=== PATIENT | female | born 1940 | race Caucasian/White ===

== ENCOUNTER 2019-10-08 20:13 | Inpatient (IN) | payer MEDICARE, MEDICAID ==
[~2019-10-08] VITALS: Ht 160 cm; Wt 69.1 kg
[~2019-10-08 20:13] MED LIST: BUSPAR10 MG PO; KEFLEX500 MG PO; METHADONE10 MG PO; NEURONTIN600 MG PO; ZOLOFT100 MG PO; ZOLOFT50 MG PO
[2019-10-08 20:27] VITALS: BP 124/77
[2019-10-08 20:37] LABS: BASO % 0.8 % (0.0-1.0); EOS # 0.2 10*3/uL (0.0-0.4); EOS % 3.5 % (1.0-4.0); HEMATOCRIT 39.1 % (37.0-47.0); HEMOGLOBIN 12.4 g/dl (12.0-16.0); LYMPH # 2.3 10*3/uL (1.3-4.4); LYMPH % 44.1 % (27.0-41.0); MEAN CELL VOLUME 85.7 fl (81.0-99.0); MEAN CORPUSCULAR HGB 27.2 pg (27.0-31.0); MEAN CORPUSCULAR HGB CONC 31.7 g/dl (33.0-37.0); MEAN PLATELET VOLUME 10.1 fl (9.6-12.3); MONO # 0.6 10*3/uL (0.1-1.0); MONO % 11.7 % (3.0-9.0); NEUT % 39.7 % (47.0-73.0); PLATELET COUNT AUTOMATED 176 10*3/uL (130-400); RED BLOOD COUNT 4.56 10*6/uL (4.10-5.10); WHITE BLOOD COUNT 5.1 10*3/uL (4.8-10.8)
[2019-10-08 20:49] LABS: ACT PARTIAL THROMBO TIME 24.7 SECONDS (20.0-32.1); INTERNATIONAL NORM RATIO 0.9 (2.0-3.5)
[2019-10-08 20:53] LABS: ALBUMIN 3.8 gm/dl (3.1-4.5); ALKALINE PHOSPHATASE 73 U/L (45-117); BUN 13 mg/dl (7-24); CHLORIDE 110 mmol/L (98-107); SGOT/AST 17 IU/L (3-35); SGPT/ALT 19 U/L (12-78); SODIUM 144 mmol/L (136-145); TOTAL PROTEIN 6.9 gm/dL (6.4-8.2)
[2019-10-08 20:54] LABS: TROPONIN I < 0.015 ng/ml (<0.045)
[2019-10-08 23:40] VITALS: BP 164/84
[2019-10-08] MEDS ORDERED: FOLGARD TABLET1 EACH PO (23:53)
[2019-10-09] VITALS: BP 164/84
[2019-10-09] MEDS ORDERED: TRAMADOL HCL50 MG PO (00:01)
[2019-10-09 01:08] VITALS: BP 138/76
[2019-10-09] MEDS ORDERED: MECLIZINE HCL25 M2 PO ×2 (04:10→04:11)
[2019-10-09 05:47] LABS: CREATININE 1.09 mg/dL (0.55-1.02); FREE T4 0.68 ng/dl (0.76-1.46); PHOSPHOROUS 3.7 mg/dL (2.5-4.9); POTASSIUM 3.6 mmol/L (3.5-5.1)
[2019-10-09 05:53] LABS: THYROID STIM HORMONE (HS) 2.27 uIU/ml (0.358-4.75)
[2019-10-09 06:13] LABS: BASO % 0.8 % (0.0-1.0); EOS # 0.2 10*3/uL (0.0-0.4); EOS % 3.2 % (1.0-4.0); HEMATOCRIT 36.9 % (37.0-47.0); HEMOGLOBIN 11.4 g/dl (12.0-16.0); LYMPH # 2.4 10*3/uL (1.3-4.4); LYMPH % 50.5 % (27.0-41.0); MEAN CELL VOLUME 87.6 fl (81.0-99.0); MEAN CORPUSCULAR HGB 27.1 pg (27.0-31.0); MEAN CORPUSCULAR HGB CONC 30.9 g/dl (33.0-37.0); MEAN PLATELET VOLUME 10.9 fl (9.6-12.3); MONO # 0.6 10*3/uL (0.1-1.0); MONO % 12.1 % (3.0-9.0); NEUT # 1.6 10*3/uL (2.3-7.9); NEUT % 33.2 % (47.0-73.0); PLATELET COUNT AUTOMATED 152 10*3/uL (130-400); RED BLOOD COUNT 4.21 10*6/uL (4.10-5.10); WHITE BLOOD COUNT 4.7 10*3/uL (4.8-10.8)
[2019-10-09 07:47] LABS: VITAMIN D, 25-HYDROXY 39.5 ng/mL (30-100)
[2019-10-09 08:00] VITALS: BP 154/76
[2019-10-09 12:00] VITALS: BP 134/61
[2019-10-09 16:00] VITALS: BP 135/68
[2019-10-09 20:00] VITALS: BP 126/74
[2019-10-10] VITALS: BP 153/66
[2019-10-10 07:04] LABS: BASO % 0.4 % (0.0-1.0); EOS # 0.2 10*3/uL (0.0-0.4); EOS % 3.7 % (1.0-4.0); HEMATOCRIT 39.3 % (37.0-47.0); HEMOGLOBIN 12.5 g/dl (12.0-16.0); LYMPH # 1.7 10*3/uL (1.3-4.4); MEAN CELL VOLUME 84.7 fl (81.0-99.0); MEAN CORPUSCULAR HGB 26.9 pg (27.0-31.0); MEAN CORPUSCULAR HGB CONC 31.8 g/dl (33.0-37.0); MEAN PLATELET VOLUME 10.5 fl (9.6-12.3); MONO # 0.5 10*3/uL (0.1-1.0); MONO % 10.8 % (3.0-9.0); NEUT # 2.1 10*3/uL (2.3-7.9); NEUT % 46.9 % (47.0-73.0); PLATELET COUNT AUTOMATED 168 10*3/uL (130-400); RED BLOOD COUNT 4.64 10*6/uL (4.10-5.10); RED CELL DISTRI WIDTH 13.9 % (0-14.5); WHITE BLOOD COUNT 4.6 10*3/uL (4.8-10.8)
[2019-10-10 07:16] LABS: BUN 11 mg/dl (7-24); CHLORIDE 109 mmol/L (98-107); CREATININE 0.93 mg/dL (0.55-1.02); POTASSIUM 3.8 mmol/L (3.5-5.1); SODIUM 142 mmol/L (136-145)
[2019-10-10 08:00] VITALS: BP 152/79
[2019-10-10 12:00] VITALS: BP 145/76
== END 2019-10-10 16:58 | disposition home or self-care (01) | DRG 564 ==
LOC: ED 20:13 → 4E 22:52 → EDHOLD 22:52 → 4E 23:38
PROVIDERS: Emergency Medicine; Internal Medicine; ADMIT Emergency Medicine
DX: M89.8X1 Other specified disorders of bone, shoulder (principal); N17.0 Acute kidney failure with tubular necrosis; E87.0 Hyperosmolality and hypernatremia; E87.8 Other disorders of electrolyte and fluid balance, not elsewhere classified; E83.41 Hypermagnesemia; R73.9 Hyperglycemia, unspecified; D64.9 Anemia, unspecified; L40.50 Arthropathic psoriasis, unspecified; E78.5 Hyperlipidemia, unspecified; K59.09 Other constipation; M79.7 Fibromyalgia; R07.89 Other chest pain; F41.9 Anxiety disorder, unspecified; Z79.899 Other long term (current) drug therapy; Z85.828 Personal history of other malignant neoplasm of skin

== ENCOUNTER 2019-12-26 11:05 | Inpatient (IN) | payer MEDICARE, MEDICAID ==
[2019-12-26] VITALS (7 sets, daily range): BP systolic 123–146; BP diastolic 58–95
[~2019-12-26] VITALS: Ht 162.6 cm; Wt 67.7 kg
[~2019-12-26 11:05] MED LIST changes: +FOLGARD TABLET1 EACH PO; +MECLIZINE HCL25 M2 PO; +TRAMADOL HCL50 MG PO
[2019-12-26 11:32] LABS: BASO # 0.1 10*3/uL (0.0-0.1); BASO % 0.9 % (0.0-1.0); EOS # 0.2 10*3/uL (0.0-0.4); EOS % 3.1 % (1.0-4.0); HEMATOCRIT 41.6 % (37.0-47.0); LYMPH # 1.7 10*3/uL (1.3-4.4); LYMPH % 30.4 % (27.0-41.0); MEAN CORPUSCULAR HGB 27.7 pg (27.0-31.0); MEAN CORPUSCULAR HGB CONC 32.2 g/dl (33.0-37.0); MEAN PLATELET VOLUME 10.1 fl (9.6-12.3); MONO # 0.8 10*3/uL (0.1-1.0); MONO % 13.1 % (3.0-9.0); NEUT % 51.6 % (47.0-73.0); PLATELET COUNT AUTOMATED 217 10*3/uL (130-400); RED BLOOD COUNT 4.84 10*6/uL (4.10-5.10); RED CELL DISTRI WIDTH 13.9 % (0-14.5); WHITE BLOOD COUNT 5.7 10*3/uL (4.8-10.8)
[2019-12-26 11:43] LABS: ACT PARTIAL THROMBO TIME 23.1 SECONDS (20.0-32.1); INTERNATIONAL NORM RATIO 0.9 (2.0-3.5)
[2019-12-26 11:55] LABS: ALBUMIN 3.6 gm/dl (3.1-4.5); ALKALINE PHOSPHATASE 92 U/L (45-117); BUN 26 mg/dl (7-24); CHLORIDE 106 mmol/L (98-107); CREATININE 0.98 mg/dL (0.55-1.02); LIPASE 225 U/L (73-393); POTASSIUM 4.5 mmol/L (3.5-5.1); SGOT/AST 15 IU/L (3-35); SGPT/ALT 19 U/L (12-78); SODIUM 139 mmol/L (136-145); TOTAL PROTEIN 6.7 gm/dL (6.4-8.2)
[2019-12-26 11:57] LABS: TROPONIN I < 0.015 ng/ml (<0.045)
[2019-12-26 12:51] LABS: BILIRUBIN NEGATIVE (NEGATIVE); BLOOD NEGATIVE (NEGATIVE); CLARITY SL CLOUDY (CLEAR); COLOR YELLOW (YELLOW); GLUCOSE NEGATIVE (NEGATIVE); KETONE NEGATIVE (NEGATIVE); LEUKO ESTERASE 1+ (NEGATIVE); NITRITE NEGATIVE (NEGATIVE); PH 6.5 (5.0-9.0); UROBILINOGEN 0.2 E.U./dl (0.2-1.0)
[2019-12-26 13:01] LABS: BACTERIA TRACE; EPITHELIAL CELLS 0-2
[2019-12-26] MEDS ORDERED: PROTONIX TR40 M1 PO (15:50)
[2019-12-26] MEDS ORDERED: NEURONTIN300 MG PO (15:50)
[2019-12-26] MEDS ORDERED: KENALOG 0.1% LO60 ML T (15:51)
[2019-12-26] MEDS ORDERED: AMITRIPTYLINE25 MG PO (15:51)
[2019-12-26] MEDS ORDERED: VITAMIN D350 MC2 PO (15:52)
--- NOTE | 2019-12-26 16:50 | NUR ---
Time: 1649 A 79 year old FEMALE admitted to 4E under services of BRUNO GENAO DO. Pt. arrived via WHEELCHAIR from ER. Chief complaint: WEAKNESS, ABDOMINAL PAIN, BACK PAIN, SORE THROAT AND COUGH FOR ONE MONTH. KIMMY DIALLO
--- NOTE | 2019-12-26 17:18 | NUR ---
MEDICATED WITH PRN PO NORCO AND DULCOLAX FOR C/O BACK AND LEGS ARTHRITIS PAIN AND ALSO CONSTIPATION.
[2019-12-26] MEDS ORDERED: OCUVITE WITH L1 EACH PO (17:35)
--- NOTE | 2019-12-26 19:55 | NUR ---
PATIENT IS AAOX3 RESTING IN BED WITH EASY AND REGULAR RESPERS ON ROOM AIR. ASSESSMENT IS COMPLETE WITH NO C/O OR S/S OF DISTRESS NOTED AT THIS TIME. BED IS LOW, LOCKED, AND CALL LIGHT IS WITHIN REACH. WILL CONTINUE TO MONITOR, SEE SHIFT ASSESSMENT.
--- NOTE | 2019-12-26 21:18 | NUR ---
NORCO ADMINISTERED FOR PT C/O NECK PAIN RATED A 6/10. WILL CONTINUE TO MONITOR.
--- NOTE | 2019-12-26 22:51 | NUR ---
PATIENT REQUESTING SOMETHING TO HELP SLEEP. CALL PLACED TO DR. JOHN EPSTEIN ORDERED.
[2019-12-27] VITALS: BP 146/77
--- NOTE | 2019-12-27 03:05 | NUR ---
CHART CHECK COMPLETE.
--- NOTE | 2019-12-27 03:28 | NUR ---
PRN NORCO GIVEN AT 0319 FOR C/O LEG PAIN RATING A 6/10. CALL LIGHT IS WITHIN REACH. WILL MONITOR EFFECT.
[2019-12-27 06:17] LABS: BASO % 0.4 % (0.0-1.0); EOS # 0.2 10*3/uL (0.0-0.4); EOS % 3.6 % (1.0-4.0); HEMATOCRIT 38.1 % (37.0-47.0); LYMPH % 39.9 % (27.0-41.0); MEAN CELL VOLUME 85.6 fl (81.0-99.0); MEAN CORPUSCULAR HGB CONC 31.5 g/dl (33.0-37.0); MEAN PLATELET VOLUME 10.4 fl (9.6-12.3); MONO # 0.6 10*3/uL (0.1-1.0); MONO % 12.3 % (3.0-9.0); NEUT # 2.2 10*3/uL (2.3-7.9); NEUT % 43.4 % (47.0-73.0); PLATELET COUNT AUTOMATED 187 10*3/uL (130-400); RED BLOOD COUNT 4.45 10*6/uL (4.10-5.10); RED CELL DISTRI WIDTH 13.7 % (0-14.5)
--- NOTE | 2019-12-27 06:29 | NUR ---
PAIN MEDICATION REASSED AT 0430, NO S/S OF PAIN. PATIENT IS SLEEPING WITH EASY AND REGULAR RESPERS ON ROOM AIR. CALL LIGHT IS WITHIN REACH.
[2019-12-27 06:44] LABS: ALBUMIN 3.3 gm/dl (3.1-4.5); ALKALINE PHOSPHATASE 79 U/L (45-117); BUN 26 mg/dl (7-24); CHLORIDE 107 mmol/L (98-107); CHOLESTEROL 222 mg/dL (<200); CREATININE 0.87 mg/dL (0.55-1.02); FREE T4 0.82 ng/dl (0.76-1.46); HDL CHOLESTEROL 53 mg/dl (40-60); LDL CHOLESTEROL 147 mg/dL (9-159); POTASSIUM 4.2 mmol/L (3.5-5.1); SGOT/AST 10 IU/L (3-35); SGPT/ALT 16 U/L (12-78); SODIUM 142 mmol/L (136-145); TOTAL PROTEIN 6.4 gm/dL (6.4-8.2); TRIGLYCERIDES 111 mg/dl (<150); VLDL CHOLESTEROL 22 mg/dL (6-40)
--- NOTE | 2019-12-27 07:48 | NUR ---
PHYSICAL THERAPY Screen and PT eval received will follow thank you. Courtney Mann PT
[2019-12-27 07:59] LABS: VITAMIN D, 25-HYDROXY 40.5 ng/mL (30-100)
[2019-12-27 08:00] VITALS: BP 152/89
--- NOTE | 2019-12-27 08:44 | NUR ---
PT RESTING IN BED. NO DISTRESS NOTED. WILL MONITOR
--- NOTE | 2019-12-27 11:32 | NUR ---
Franchise Specialist in to talk to patient. Patient states lives at HOME with GRANDSONS. There are BASEMENT steps in the home. Physician: [facility]: [facility] Home health services: NONE Patient's level of ADLs: INDEPENDENT Patient has working utilities: YES DME: NONE Follow-up physician's appointment after d/c: WILL BE MADE BY HOSPITALIST NURSE DIRECTOR ON DISCHARGE Does patient want to access PORTAL?: NO Discharge plan PT LIVES AT HOME WITH HER GRANDSONS AND IS INDEPENDENT IN HER CARE. DENIES SHE HAS ANY NEEDS AT HOME. STATES GRANDSONS HELP HER WITH LAUNDRY AND CLEANING. PLANS TO RETURN HOME WHEN MEDICALLY STABLE. STATES HER SON WILL TAKE HER HOME. WILL CONTINUE TO FOLLOW.. KOURTNEY BELTRAN
--- NOTE | 2019-12-27 12:30 | NUR ---
Occupational therapy orders received and OT screening completed this date. Patient was A&Ox3 and reported and demonstrated she has independently completing ADLs, transfers, and functional mobility in the room. Patient independently transferred on and off the toilet without GB use, no LOBs, and transferred in and out of bed. Patient notified of d/c from OT services and was agreeable. Thank you for the referral. Sari Yang, OTR/L
--- NOTE | 2019-12-27 12:34 | NUR ---
PHYSICAL THERAPY PT evaluation attempted and patient screen completed. Patient independent in room, able to walk freely and transfer without difficulty. No PT needs at this time. Thank you. Amelia Jefferson,PT,DPT.
[2019-12-27] MEDS ORDERED: CEPHALEXIN500 M1 PO (13:40)
--- NOTE | 2019-12-27 14:00 | NUR ---
Discharge instructions reviewed with patient/family. Patient receptive and verbalizes understanding. Follow-up care arranged. Written instructions given to patient/family. RANULFO MCQUEEN
== END 2019-12-27 13:54 | disposition home or self-care (01) | DRG 690 ==
LOC: ED 11:05 → EDHOLD 14:48 → 4E 14:48
PROVIDERS: Emergency Medicine; Registered Nurse; ADMIT Internal Medicine
DX: N30.00 Acute cystitis without hematuria (principal); E86.0 Dehydration; R53.1 Weakness; E83.41 Hypermagnesemia; E78.2 Mixed hyperlipidemia; K44.9 Diaphragmatic hernia without obstruction or gangrene; M79.7 Fibromyalgia; G50.0 Trigeminal neuralgia; F41.9 Anxiety disorder, unspecified; F32.9 Major depressive disorder, single episode, unspecified; Z90.49 Acquired absence of other specified parts of digestive tract; Z98.51 Tubal ligation status; Z87.891 Personal history of nicotine dependence; Z83.49 Family history of other endocrine, nutritional and metabolic diseases; Z79.899 Other long term (current) drug therapy

== ENCOUNTER 2020-01-24 07:06 | Observation (INO) | payer MEDICARE, MEDICAID ==
[2020-01-24] VITALS (7 sets, daily range): BP systolic 115–194; BP diastolic 65–104
[~2020-01-24] VITALS: Ht 160 cm; Wt 64.2 kg
[~2020-01-24 07:06] MED LIST changes: +AMITRIPTYLINE25 MG PO; +CEPHALEXIN500 M1 PO; +KENALOG 0.1% LO60 ML T; +NEURONTIN300 MG PO; +OCUVITE WITH L1 EACH PO; +PROTONIX TR40 M1 PO; +VITAMIN D350 MC2 PO
[2020-01-24 07:27] LABS: BASO % 0.4 % (0.0-1.0); EOS # 0.1 10*3/uL (0.0-0.4); EOS % 1.1 % (1.0-4.0); HEMATOCRIT 40.1 % (37.0-47.0); LYMPH # 1.3 10*3/uL (1.3-4.4); LYMPH % 22.9 % (27.0-41.0); MEAN CELL VOLUME 84.2 fl (81.0-99.0); MEAN CORPUSCULAR HGB 27.3 pg (27.0-31.0); MEAN CORPUSCULAR HGB CONC 32.4 g/dl (33.0-37.0); MONO # 0.5 10*3/uL (0.1-1.0); MONO % 8.3 % (3.0-9.0); NEUT # 3.8 10*3/uL (2.3-7.9); NEUT % 66.9 % (47.0-73.0); PLATELET COUNT AUTOMATED 183 10*3/uL (130-400); RED BLOOD COUNT 4.76 10*6/uL (4.10-5.10); RED CELL DISTRI WIDTH 13.6 % (0-14.5); WHITE BLOOD COUNT 5.6 10*3/uL (4.8-10.8)
[2020-01-24] MEDS ORDERED: TRAMADOL HCL50 MG PO (07:38)
[2020-01-24 07:43] LABS: ACT PARTIAL THROMBO TIME 26.1 SECONDS (20.0-32.1); INTERNATIONAL NORM RATIO 0.9 (2.0-3.5)
[2020-01-24 07:44] LABS: ALBUMIN 4.1 gm/dl (3.1-4.5); ALKALINE PHOSPHATASE 82 U/L (45-117); BUN 14 mg/dl (7-24); CHLORIDE 109 mmol/L (98-107); CREATININE 0.92 mg/dL (0.55-1.02); POTASSIUM 3.5 mmol/L (3.5-5.1); SGOT/AST 15 IU/L (3-35); SGPT/ALT 19 U/L (12-78); SODIUM 141 mmol/L (136-145); TOTAL PROTEIN 7.8 gm/dL (6.4-8.2)
[2020-01-24 07:46] LABS: TROPONIN I < 0.015 ng/ml (<0.045)
[2020-01-24 07:54] LABS: LIPASE 139 U/L (73-393)
[2020-01-24 08:40] LABS: BILIRUBIN NEGATIVE (NEGATIVE); BLOOD NEGATIVE (NEGATIVE); CLARITY CLEAR (CLEAR); COLOR YELLOW (YELLOW); EPITHELIAL CELLS 0-2; GLUCOSE NEGATIVE (NEGATIVE); KETONE NEGATIVE (NEGATIVE); LEUKO ESTERASE TRACE (NEGATIVE); NITRITE NEGATIVE (NEGATIVE); PH 8.5 (5.0-9.0); SPECIFIC GRAVITY 1.015 (1.005-1.030); UROBILINOGEN 0.2 E.U./dl (0.2-1.0); WBC 0-2 wbc/hpf (0-5)
[2020-01-24] MEDS ORDERED: LISINOPRIL10 M1 PO (12:55)
[2020-01-24 17:24] LABS: URINE AMPHETAMINES < 1000 (1000ng/ml); URINE BARBITURATES < 200 (200ng/ml); URINE BENZODIAZEPINES < 200 (200ng/ml); URINE CANNABINOIDS (THC) < 50 (50ng/ml); URINE COCAINE < 300 (300ng/ml); URINE METHADONE < 300 (300ng/ml); URINE OPIATES < 300 (300ng/ml)
[2020-01-24 17:26] LABS: URINE PHENCYCLIDINE < 25 (25ng/ml)
[2020-01-25] VITALS: BP 120/70
[2020-01-25 06:32] LABS: BASO % 0.8 % (0.0-1.0); EOS # 0.1 10*3/uL (0.0-0.4); EOS % 1.5 % (1.0-4.0); HEMATOCRIT 39.4 % (37.0-47.0); LYMPH % 37.8 % (27.0-41.0); MEAN CELL VOLUME 84.9 fl (81.0-99.0); MEAN CORPUSCULAR HGB 26.7 pg (27.0-31.0); MEAN CORPUSCULAR HGB CONC 31.5 g/dl (33.0-37.0); MEAN PLATELET VOLUME 10.3 fl (9.6-12.3); MONO # 0.7 10*3/uL (0.1-1.0); MONO % 13.1 % (3.0-9.0); NEUT # 2.4 10*3/uL (2.3-7.9); NEUT % 46.6 % (47.0-73.0); PLATELET COUNT AUTOMATED 195 10*3/uL (130-400); RED BLOOD COUNT 4.64 10*6/uL (4.10-5.10); RED CELL DISTRI WIDTH 13.6 % (0-14.5); WHITE BLOOD COUNT 5.2 10*3/uL (4.8-10.8)
[2020-01-25 06:54] LABS: BUN 19 mg/dl (7-24); CHLORIDE 109 mmol/L (98-107); CREATININE 0.94 mg/dL (0.55-1.02); POTASSIUM 3.3 mmol/L (3.5-5.1); SODIUM 141 mmol/L (136-145)
[2020-01-25 08:00] VITALS: BP 148/80
[2020-01-25] MEDS ORDERED: TRAMADOL HCL50 MG PO (09:26)
== END 2020-01-25 10:20 | disposition home or self-care (01) ==
LOC: ED 07:06 → 5E 11:16 → EDHOLD 11:16 → 5E 11:16
PROVIDERS: Emergency Medicine; Family Medicine; Internal Medicine; ADMIT Internal Medicine
DX: R00.0 Tachycardia, unspecified (principal); I16.0 Hypertensive urgency; I10 Essential (primary) hypertension; E86.0 Dehydration; E83.41 Hypermagnesemia; F11.23 Opioid dependence with withdrawal; E87.8 Other disorders of electrolyte and fluid balance, not elsewhere classified; F41.9 Anxiety disorder, unspecified; M79.7 Fibromyalgia; E55.9 Vitamin D deficiency, unspecified; K21.9 Gastro-esophageal reflux disease without esophagitis; F32.9 Major depressive disorder, single episode, unspecified

== ENCOUNTER → 2022-01-08 | Outpatient (CLI) | payer OTHER, MEDICAID ==
[~2022-01-08] MED LIST changes: +CIPRO500 MG PO; +LISINOPRIL10 M1 PO
== END | disposition home or self-care (01) ==
LOC: RAD 10:07
PROVIDERS: ATTEND Preventive Medicine Occupational Medicine
DX: M51.36 Other intervertebral disc degeneration, lumbar region (principal)

== ENCOUNTER 2022-01-10 19:56 | Emergency (ER) | payer OTHER, MEDICAID ==
[~2022-01-10] VITALS: Ht 162.5 cm; Wt 73.5 kg
[~2022-01-10 19:56] MED LIST changes: -CIPRO500 MG PO
[2022-01-10 20:28] LABS: BILIRUBIN 2+ (Negative); BLOOD 2+ (Negative); CLARITY Turbid (Clear); COLOR Red (Yellow); GLUCOSE Negative (Negative); LEUKO ESTERASE 3+ (Negative); NITRITE Positive (Negative); SPECIFIC GRAVITY 1.015 (1.001-1.030); UROBILINOGEN 0.2 E.U./dl (0.0-1.0)
[2022-01-10 20:57] LABS: KETONE Negative (Negative); PH 8.5 (4.5-8.0); RBC TNTC rbc/hpf (0-2)
[2022-01-11] MEDS ORDERED: CIPRO500 MG PO (00:48)
== END 2022-01-11 01:22 | disposition home or self-care (01) ==
LOC: ED 19:56
PROVIDERS: Physician Assistant
DX: N39.0 Urinary tract infection, site not specified (principal); N32.89 Other specified disorders of bladder

== ENCOUNTER → 2022-06-22 | Outpatient (CLI) | payer OTHER, MEDICAID ==
[~2022-06-22] MED LIST changes: +CIPRO500 MG PO
[2022-06-22 11:34] LABS: BASO % 0.6 % (0.0-1.0); EOS # 0.1 10*3/uL (0.0-0.4); HEMATOCRIT 42.3 % (37.0-47.0); LYMPH # 1.7 10*3/uL (1.3-4.4); LYMPH % 26.3 % (27.0-41.0); MEAN CELL VOLUME 83.9 fl (81.0-99.0); MEAN CORPUSCULAR HGB 27.6 pg (27.0-31.0); MEAN CORPUSCULAR HGB CONC 32.9 g/dl (33.0-37.0); MEAN PLATELET VOLUME 9.8 fl (9.6-12.3); MONO # 0.6 10*3/uL (0.1-1.0); MONO % 9.7 % (3.0-9.0); NEUT # 3.9 10*3/uL (2.3-7.9); NEUT % 60.5 % (47.0-73.0); PLATELET COUNT AUTOMATED 229 10*3/uL (130-400); RED BLOOD COUNT 5.04 10*6/uL (4.10-5.10); RED CELL DISTRI WIDTH 14.5 % (0-14.5); WHITE BLOOD COUNT 6.5 10*3/uL (4.8-10.8)
[2022-06-22 11:39] LABS: BILIRUBIN Negative (Negative); BLOOD 1+ (Negative); CLARITY Cloudy (Clear); COLOR Yellow (Yellow); GLUCOSE Negative (Negative); KETONE Negative (Negative); LEUKO ESTERASE 3+ (Negative); NITRITE Negative (Negative); SPECIFIC GRAVITY 1.015 (1.001-1.030); UROBILINOGEN 0.2 E.U./dl (0.0-1.0)
[2022-06-22 11:49] LABS: CREATININE 1.08 mg/dL (0.55-1.02); POTASSIUM 4.1 mmol/L (3.5-5.1); TOTAL PROTEIN 7.7 gm/dL (6.4-8.2)
[2022-06-22 12:11] LABS: WBC 31-40 wbc/hpf (0-5)
[2022-06-22 12:12] LABS: TRIP PHOS CRYSTALS 1+
== END | disposition home or self-care (01) ==
LOC: CT 06-08 11:00 → LAB 10:44 → CT 11:00
PROVIDERS: ATTEND Urology
DX: C67.9 Malignant neoplasm of bladder, unspecified (principal)

== ENCOUNTER → 2022-07-16 | Outpatient (CLI) | payer OTHER, MEDICAID ==
[~2022-07-16] MED LIST changes: +ANTIFUNGAL113 GM T
== END | disposition home or self-care (01) ==
LOC: CT 06-30 11:00
PROVIDERS: ATTEND Urology
DX: C67.9 Malignant neoplasm of bladder, unspecified (principal); R31.9 Hematuria, unspecified; I25.10 Atherosclerotic heart disease of native coronary artery without angina pectoris; K44.9 Diaphragmatic hernia without obstruction or gangrene; K76.0 Fatty (change of) liver, not elsewhere classified; K57.30 Diverticulosis of large intestine without perforation or abscess without bleeding; Z82.49 Family history of ischemic heart disease and other diseases of the circulatory system

== ENCOUNTER 2022-07-17 12:49 | Emergency (ER) | payer OTHER, MEDICAID ==
[~2022-07-17] VITALS: Ht 165.1 cm; Wt 72.6 kg
[~2022-07-17 12:49] MED LIST changes: -ANTIFUNGAL113 GM T
[2022-07-17 14:25] LABS: BASO % 0.5 % (0.0-1.0); EOS # 0.1 10*3/uL (0.0-0.4); EOS % 2.1 % (1.0-4.0); HEMATOCRIT 44.1 % (37.0-47.0); LYMPH # 1.4 10*3/uL (1.3-4.4); LYMPH % 22.1 % (27.0-41.0); MEAN CELL VOLUME 86.8 fl (81.0-99.0); MEAN CORPUSCULAR HGB 27.8 pg (27.0-31.0); MEAN PLATELET VOLUME 9.5 fl (9.6-12.3); MONO # 0.5 10*3/uL (0.1-1.0); MONO % 8.2 % (3.0-9.0); NEUT # 4.1 10*3/uL (2.3-7.9); NEUT % 66.8 % (47.0-73.0); PLATELET COUNT AUTOMATED 229 10*3/uL (130-400); RED BLOOD COUNT 5.08 10*6/uL (4.10-5.10); RED CELL DISTRI WIDTH 14.7 % (0-14.5); WHITE BLOOD COUNT 6.2 10*3/uL (4.8-10.8)
[2022-07-17 14:36] LABS: INTERNATIONAL NORM RATIO 0.9 (2.0-3.5)
[2022-07-17 14:40] LABS: ALKALINE PHOSPHATASE 65 U/L (46-116); BUN 15 mg/dl (9-23); CHLORIDE 105 mmol/L (98-107); CREATININE 0.95 mg/dL (0.55-1.02); LIPASE 37 U/L (12-53); POTASSIUM 3.9 mmol/L (3.4-5.1); SGPT/ALT 7 U/L (10-49); SODIUM 140 mmol/L (136-145)
[2022-07-17 14:41] LABS: TOTAL PROTEIN 7.5 gm/dL (6.0-8.0)
[2022-07-17 15:12] LABS: BILIRUBIN Negative (Negative); BLOOD Negative (Negative); CLARITY Clear (Clear); COLOR Yellow (Yellow); GLUCOSE Negative (Negative); KETONE Negative (Negative); LEUKO ESTERASE Negative (Negative); NITRITE Negative (Negative); PH 6.5 (4.5-8.0); UROBILINOGEN 0.2 E.U./dl (0.0-1.0)
[2022-07-17 16:27] LABS: RBC 0-2 rbc/hpf (0-2); WBC 0-2 wbc/hpf (0-5)
[2022-07-17] MEDS ORDERED: ANTIFUNGAL113 GM T (16:34)
== END 2022-07-17 16:44 | disposition home or self-care (01) ==
LOC: ED 12:49
PROVIDERS: Emergency Medicine
DX: L30.4 Erythema intertrigo (principal); K21.9 Gastro-esophageal reflux disease without esophagitis; E78.5 Hyperlipidemia, unspecified; I10 Essential (primary) hypertension; Z88.6 Allergy status to analgesic agent; Z79.899 Other long term (current) drug therapy; Z98.890 Other specified postprocedural states; Z90.49 Acquired absence of other specified parts of digestive tract; Z98.51 Tubal ligation status; Z87.891 Personal history of nicotine dependence; Z90.710 Acquired absence of both cervix and uterus

== ENCOUNTER 2022-10-03 19:02 | Emergency (ER) | payer OTHER, MEDICAID ==
[~2022-10-03] VITALS: Ht 160 cm; Wt 73.5 kg
[~2022-10-03 19:02] MED LIST changes: +ANTIFUNGAL113 GM T
== END 2022-10-03 19:36 | disposition home or self-care (01) ==
LOC: ED 19:02
DX: I10 Essential (primary) hypertension (principal); Z88.1 Allergy status to other antibiotic agents; Z88.6 Allergy status to analgesic agent; Z79.899 Other long term (current) drug therapy; Z98.51 Tubal ligation status; Z90.49 Acquired absence of other specified parts of digestive tract; Z98.890 Other specified postprocedural states; Z90.710 Acquired absence of both cervix and uterus; Z87.891 Personal history of nicotine dependence

== ENCOUNTER → 2023-01-07 | Outpatient (CLI) | payer OTHER, MEDICAID | END | disposition home or self-care (01) | LOC: RAD 14:33 | PROVIDERS: ATTEND Nurse Practitioner Family | DX: M79.601 Pain in right arm (principal) ==

== ENCOUNTER 2023-08-06 22:21 | Emergency (ER) | payer OTHER ==
[~2023-08-06] VITALS: Ht 162.5 cm; Wt 70.9 kg
[2023-08-06 23:16] LABS: BASO % 0.6 % (0.0-1.0); EOS # 0.1 10*3/uL (0.0-0.4); EOS % 1.6 % (1.0-4.0); HEMATOCRIT 37.4 % (37.0-47.0); LYMPH # 1.6 10*3/uL (1.3-4.4); LYMPH % 32.6 % (27.0-41.0); MEAN CELL VOLUME 85.8 fl (81.0-99.0); MEAN CORPUSCULAR HGB 27.3 pg (27.0-31.0); MEAN CORPUSCULAR HGB CONC 31.8 g/dl (33.0-37.0); MEAN PLATELET VOLUME 9.7 fl (9.6-12.3); MONO # 0.5 10*3/uL (0.1-1.0); MONO % 10.3 % (3.0-9.0); NEUT # 2.8 10*3/uL (2.3-7.9); NEUT % 54.7 % (47.0-73.0); PLATELET COUNT AUTOMATED 195 10*3/uL (130-400); RED BLOOD COUNT 4.36 10*6/uL (4.10-5.10); RED CELL DISTRI WIDTH 13.5 % (0-14.5)
[2023-08-06 23:37] LABS: ALKALINE PHOSPHATASE 58 U/L (46-116); BUN 12 mg/dl (9-23); CHLORIDE 111 mmol/L (98-107); LIPASE 34 U/L (12-53); POTASSIUM 3.9 mmol/L (3.4-5.1); SGPT/ALT 8 U/L (5-49)
[2023-08-07 00:30] LABS: BILIRUBIN Negative (Negative); BLOOD Negative (Negative); CLARITY Cloudy (Clear); COLOR Yellow (Yellow); GLUCOSE Negative (Negative); KETONE Negative (Negative); LEUKO ESTERASE 2+ (Negative); NITRITE Negative (Negative); UROBILINOGEN 0.2 E.U./dl (0.0-1.0)
[2023-08-07 00:38] LABS: BACTERIA 1+; EPITHELIAL CELLS 21-30; MUCOUS 1+; WBC 16-20 wbc/hpf (0-5)
[2023-08-07] MEDS ORDERED: CIPRO500 MG PO (01:46)
== END 2023-08-07 02:17 | disposition home or self-care (01) ==
LOC: ED 22:21
PROVIDERS: Internal Medicine
DX: N39.0 Urinary tract infection, site not specified (principal); N18.31 Chronic kidney disease, stage 3a; R11.2 Nausea with vomiting, unspecified; K21.9 Gastro-esophageal reflux disease without esophagitis; M19.90 Unspecified osteoarthritis, unspecified site; F41.9 Anxiety disorder, unspecified; Z88.1 Allergy status to other antibiotic agents; Z88.6 Allergy status to analgesic agent; Z90.49 Acquired absence of other specified parts of digestive tract; Z98.51 Tubal ligation status; Z90.710 Acquired absence of both cervix and uterus; Z98.890 Other specified postprocedural states; Z87.891 Personal history of nicotine dependence; Z20.822 Contact with and (suspected) exposure to COVID-19

== ENCOUNTER → 2023-11-12 | Outpatient (CLI) | payer OTHER, MEDICAID ==
[~2023-11-12] MED LIST changes: +BUSPAR15 MG PO; +GABAPENTIN100 M2 PO; +GABAPENTIN400 MG PO; +HYDROCODONE-AC1 EAC1 PO; +MYRBETRIQ25 M1 PO; +TAMSULOSIN HCL0.4 MG PO; +VESICARE5 MG PO; +VITAMIN D350 MCG PO; +XTAMPZA ER9 MG PO
== END | disposition home or self-care (01) ==
LOC: RAD 15:08
PROVIDERS: ATTEND Nurse Practitioner
DX: M19.012 Primary osteoarthritis, left shoulder (principal); M25.511 Pain in right shoulder

== ENCOUNTER 2023-12-12 18:04 | Emergency (ER) | payer OTHER, MEDICAID ==
[~2023-12-12] VITALS: Wt 75.7 kg
[2023-12-12] MEDS ORDERED: ACETAMINOPHEN 325 MG TAB PO ONE (18:25)
[2023-12-12] MEDS ORDERED: HYDROCODONE-AC1 EAC1 PO (21:13)
== END 2023-12-12 21:25 | disposition home or self-care (01) ==
LOC: ED 18:04
DX: S22.31XA Fracture of one rib, right side, initial encounter for closed fracture (principal); Z88.1 Allergy status to other antibiotic agents; Z88.6 Allergy status to analgesic agent; Z98.890 Other specified postprocedural states; Z90.49 Acquired absence of other specified parts of digestive tract; Z98.51 Tubal ligation status; Z90.710 Acquired absence of both cervix and uterus; Z87.891 Personal history of nicotine dependence; W01.198A Fall on same level from slipping, tripping and stumbling with subsequent striking against other object, initial encounter; Y93.89 Activity, other specified; Y92.89 Other specified places as the place of occurrence of the external cause; Y99.8 Other external cause status

== ENCOUNTER 2024-12-19 17:22 | Inpatient (IN) | payer OTHER, MEDICAID ==
[~2024-12-19] VITALS: Ht 162.5 cm; Wt 79.6 kg
[2024-12-19 17:43] VITALS: BP 159/101
[2024-12-19] MEDS ORDERED: SODIUM CHLORIDE 0.9% 1,000 ML IV SCH (17:55)
[2024-12-19 18:19] LABS: BASO % 0.7 % (0.0-1.0); EOS # 0.1 10*3/uL (0.0-0.4); EOS % 2.5 % (1.0-4.0); HEMATOCRIT 40.9 % (37.0-47.0); MEAN CELL VOLUME 87.8 fl (81.0-99.0); MEAN CORPUSCULAR HGB 27.9 pg (27.0-31.0); MEAN CORPUSCULAR HGB CONC 31.8 g/dl (33.0-37.0); MEAN PLATELET VOLUME 9.9 fl (9.6-12.3); MONO # 0.5 10*3/uL (0.1-1.0); MONO % 8.2 % (3.0-9.0); NEUT # 3.7 10*3/uL (2.3-7.9); NEUT % 65.6 % (47.0-73.0); PLATELET COUNT AUTOMATED 162 10*3/uL (130-400); RED BLOOD COUNT 4.66 10*6/uL (4.10-5.10); RED CELL DISTRI WIDTH 13.7 % (0-14.5); WHITE BLOOD COUNT 5.6 10*3/uL (4.8-10.8)
[2024-12-19 18:21] LABS: BILIRUBIN Negative (Negative); BLOOD Negative (Negative); CLARITY Clear (Clear); COLOR Yellow (Yellow); GLUCOSE Negative (Negative); KETONE Negative (Negative); LEUKO ESTERASE Negative (Negative); NITRITE Negative (Negative); PH 6.5 (4.5-8.0); SPECIFIC GRAVITY <= 1.005 (1.001-1.030); UROBILINOGEN 0.2 E.U./dl (0.0-1.0)
[2024-12-19 18:30] LABS: BACTERIA TRACE
[2024-12-19 18:40] LABS: POTASSIUM 4.4 mmol/L (3.4-5.1); TOTAL PROTEIN 7.8 gm/dL (6.0-8.0)
[2024-12-19] MEDS ORDERED: Ondansetron Hydrochloride 4 MG/2 ML VIAL IV ONE (19:35)
[2024-12-19] MEDS ORDERED: HYDROmorphONE Hydrochloride 0.5 MG/0.5 ML SYRINGE IV ONE (21:00)
[2024-12-19] MEDS ORDERED: FUROSEMIDE 20 MG/2 ML VIAL IV ONE (21:05)
[2024-12-19] MEDS ORDERED: BISACODYL 5 MG TAB PO PRN (21:30)
[2024-12-19] MEDS ORDERED: BISACODYL 10 MG SUPP R PRN (21:30)
[2024-12-19] MEDS ORDERED: Magnesium Hydroxide 30 ML UDC PO PRN (21:30)
[2024-12-19] MEDS ORDERED: ACETAMINOPHEN 325 MG TAB PO PRN (21:30)
[2024-12-19] MEDS ORDERED: Ondansetron Hydrochloride 4 MG/2 ML VIAL IV PRN (21:30)
[2024-12-19] MEDS ORDERED: Pantoprazole Sodium 40 MG TAB PO PRN (21:40)
[2024-12-19] MEDS ORDERED: Melatonin 5 MG TABLET PO PRN ×2 (22:25→23:56)
[2024-12-19 23:17] VITALS: BP 163/95
[2024-12-19] MEDS ORDERED: MIRTAZAPINE30 M1 PO (23:30)
[2024-12-19] MEDS ORDERED: ROSUVASTATIN CA10 MG PO (23:30)
[2024-12-19] MEDS ORDERED: BUSPIRONE15 MG PO (23:31)
[2024-12-19] MEDS ORDERED: GABAPENTIN 600 MG TAB PO SCH (23:55)
[2024-12-19] MEDS ORDERED: Melatonin 5 MG TABLET PO ONE (23:55)
[2024-12-19] MEDS ORDERED: Mirtazapine 15 MG TAB PO SCH (23:55)
[2024-12-20 05:08] VITALS: BP 158/78
[2024-12-20 06:23] LABS: BASO % 0.5 % (0.0-1.0); EOS # 0.1 10*3/uL (0.0-0.4); EOS % 1.7 % (1.0-4.0); HEMATOCRIT 39.2 % (37.0-47.0); MEAN CORPUSCULAR HGB 28.2 pg (27.0-31.0); MEAN CORPUSCULAR HGB CONC 33.2 g/dl (33.0-37.0); MEAN PLATELET VOLUME 10.5 fl (9.6-12.3); MONO # 0.7 10*3/uL (0.1-1.0); MONO % 10.5 % (3.0-9.0); NEUT # 3.6 10*3/uL (2.3-7.9); NEUT % 57.7 % (47.0-73.0); PLATELET COUNT AUTOMATED 158 10*3/uL (130-400); RED BLOOD COUNT 4.61 10*6/uL (4.10-5.10); RED CELL DISTRI WIDTH 13.7 % (0-14.5); WHITE BLOOD COUNT 6.3 10*3/uL (4.8-10.8)
[2024-12-20] MEDS ORDERED: Regadenoson 0.4 MG/5 ML SYR IV ONE (06:24)
[2024-12-20 06:52] LABS: FREE T4 1.04 ng/dl (0.89-1.76); POTASSIUM 3.7 mmol/L (3.4-5.1)
[2024-12-20 07:32] LABS: VITAMIN D, 25-HYDROXY 40.3 ng/mL (30-100)
[2024-12-20 08:14] VITALS: BP 133/55
[2024-12-20] MEDS ORDERED: Acetaminophen/Hydrocodone 5 MG/325 MG TABLET PO PRN (09:05)
[2024-12-20] MEDS ORDERED: LISINOPRIL 10 MG TAB PO SCH (10:00)
[2024-12-20] MEDS ORDERED: FUROSEMIDE 40 MG/4 ML VIAL IV SCH (10:00)
[2024-12-20] MEDS ORDERED: Enoxaparin Sodium 40 MG/0.4 ML SYR SC SCH (10:00)
[2024-12-20] MEDS ORDERED: METOPROLOL SUCCINATE XR 25 MG TAB PO SCH (10:00)
[2024-12-20] MEDS ORDERED: ASPIRIN ENTERIC COATED 81 MG TAB PO SCH (10:00)
[2024-12-20] MEDS ORDERED: ATORVASTATIN CALCIUM 40 MG TABLET PO SCH (22:00)
[2024-12-21] VITALS: BP 116/68
[2024-12-21 06:35] LABS: BASO # 0.1 10*3/uL (0.0-0.1); BASO % 0.8 % (0.0-1.0); EOS # 0.3 10*3/uL (0.0-0.4); HEMATOCRIT 39.1 % (37.0-47.0); MEAN CELL VOLUME 87.5 fl (81.0-99.0); MEAN CORPUSCULAR HGB 28.2 pg (27.0-31.0); MEAN CORPUSCULAR HGB CONC 32.2 g/dl (33.0-37.0); MEAN PLATELET VOLUME 10.7 fl (9.6-12.3); MONO # 0.9 10*3/uL (0.1-1.0); MONO % 13.1 % (3.0-9.0); NEUT % 45.6 % (47.0-73.0); PLATELET COUNT AUTOMATED 175 10*3/uL (130-400); RED BLOOD COUNT 4.47 10*6/uL (4.10-5.10); RED CELL DISTRI WIDTH 13.8 % (0-14.5); WHITE BLOOD COUNT 6.5 10*3/uL (4.8-10.8)
[2024-12-21 06:58] LABS: POTASSIUM 3.6 mmol/L (3.4-5.1)
[2024-12-21 08:00] VITALS: BP 108/68; BP 131/55
[2024-12-21] MEDS ORDERED: Enoxaparin Sodium 30 MG/0.3 ML SYR SC SCH (10:00)
[2024-12-21 12:00] VITALS: BP 118/70
[2024-12-21 16:00] VITALS: BP 121/77
[2024-12-21 20:00] VITALS: BP 136/75
[2024-12-22] VITALS: BP 133/52
[2024-12-22 06:08] LABS: BASO % 0.6 % (0.0-1.0); EOS # 0.2 10*3/uL (0.0-0.4); EOS % 3.4 % (1.0-4.0); HEMATOCRIT 42.1 % (37.0-47.0); MEAN CELL VOLUME 86.6 fl (81.0-99.0); MEAN CORPUSCULAR HGB 27.8 pg (27.0-31.0); MEAN CORPUSCULAR HGB CONC 32.1 g/dl (33.0-37.0); MEAN PLATELET VOLUME 10.3 fl (9.6-12.3); MONO # 0.8 10*3/uL (0.1-1.0); MONO % 12.5 % (3.0-9.0); NEUT # 2.7 10*3/uL (2.3-7.9); NEUT % 43.3 % (47.0-73.0); PLATELET COUNT AUTOMATED 168 10*3/uL (130-400); RED BLOOD COUNT 4.86 10*6/uL (4.10-5.10); RED CELL DISTRI WIDTH 13.6 % (0-14.5); WHITE BLOOD COUNT 6.2 10*3/uL (4.8-10.8)
[2024-12-22 06:51] LABS: POTASSIUM 3.7 mmol/L (3.4-5.1)
[2024-12-22 08:00] VITALS: BP 136/64
[2024-12-22] MEDS ORDERED: NYSTATIN 15 GM BOT T SCH (10:25)
[2024-12-22 12:00] VITALS: BP 136/68
[2024-12-22] MEDS ORDERED: METOPROLOL SUCC25 M2 PO (12:24)
== END 2024-12-22 13:21 | disposition home or self-care (01) | DRG 291 ==
LOC: ED 17:22 → EDHOLD 21:06 → 4E 12-20 23:51
PROVIDERS: Nurse Practitioner Family; Student in an Organized Health Care Education/Training Program; ADMIT Internal Medicine; ATTEND Internal Medicine
PROC: 4A02XM4 Measurement of Cardiac Total Activity, External Approach (ICD-10-PCS; principal; 2024-12-19)
PROC: 3E073KZ Introduction of Other Diagnostic Substance into Coronary Artery, Percutaneous Approach (ICD-10-PCS; 2024-12-19)
DX: I13.0 Hypertensive heart and chronic kidney disease with heart failure and stage 1 through stage 4 chronic kidney disease, or unspecified chronic kidney disease (principal); I50.23 Acute on chronic systolic (congestive) heart failure; K59.03 Drug induced constipation; N18.32 Chronic kidney disease, stage 3b; M79.7 Fibromyalgia; K21.9 Gastro-esophageal reflux disease without esophagitis; Z66 Do not resuscitate; R10.31 Right lower quadrant pain; F32.A Depression, unspecified; K44.9 Diaphragmatic hernia without obstruction or gangrene; I08.0 Rheumatic disorders of both mitral and aortic valves; F41.9 Anxiety disorder, unspecified; L40.9 Psoriasis, unspecified; Z88.8 Allergy status to other drugs, medicaments and biological substances; Z91.09 Other allergy status, other than to drugs and biological substances; Z79.899 Other long term (current) drug therapy; Z79.01 Long term (current) use of anticoagulants; Z79.2 Long term (current) use of antibiotics; Z87.440 Personal history of urinary (tract) infections; Z98.42 Cataract extraction status, left eye; Z98.41 Cataract extraction status, right eye; Z90.49 Acquired absence of other specified parts of digestive tract; Z90.710 Acquired absence of both cervix and uterus; Z87.891 Personal history of nicotine dependence; Z82.49 Family history of ischemic heart disease and other diseases of the circulatory system